=== PATIENT | male | born 1995 | race Caucasian/White ===

== ENCOUNTER 2020-08-06 11:02 | Emergency (ER) | payer OTHER, SELFPAY ==
[2020-08-06 11:07] VITALS: BP 132/74; PULSE 60; RESP 18; TEMP 36.6; O2SAT 98; BMI 20.6
[2020-08-06 11:29] LABS: MANUAL DIFF FLAG NO
[2020-08-06] MEDS: ondansetron HCL 4 MG/2 ML VIAL IVPUSH (11:30)
[2020-08-06] MEDS: 0.9 % Sodium Chloride 1,000 ML 999 ML IVCONT (11:31)
--- NOTE | 2020-08-06 11:33 | ED.NAVMDI ---
HPI - Nausea/Vomiting/Diarrhea General Chief complaint: Nausea/Vomiting/Diarrhea Stated complaint: n/v Time Seen by Provider: 08/06/20 11:17 Source: patient Mode of arrival: ambulatory Limitations: no limitations History of Present Illness HPI Narrative: 25 y/o healthy male presenting with acute onset of nausea and vomiting for the last 5 hours. Associated with diffuse abdominal cramping and feelings of subjective fever and chills. He has not had a fever at home. He vomited 6x this morning, non-bloody. No diarrhea. No sick contacts. No COVID exposure that he is aware of. MD elicited complaint: nausea and vomiting Onset (ago): hour(s) (5) Description of vomiting: food contents and bilious Associated nausea: Yes Associated abdominal pain: Yes Location of pain: diffuse Radiation: diffuse Pain consistency: intermittent Severity: mild Quality: cramping Exacerbating factors: vomiting Relieving factors: none Context: marijuana use Associated symptoms: fever/chills, loss of appetite and nausea/vomiting Related Data Previous Rx's Medication Instructions Recorded ondansetron HCl [Zofran] 4 mg PO Q8H PRN #20 tab 08/06/20 Allergies Allergy/AdvReac Type Severity Reaction Status Date / Time No Known Allergies Allergy Verified 08/06/20 11:06 [No Known Allergies*] Review of Systems Review of Systems: Constitutional: +subjective Fever, + Chills ENT/Mouth: No sore throat, No Rhinorrhea, No Swallowing Difficulty Eyes: No Eye Pain, No Swelling, No Redness Cardiovascular: No Chest Pain, No SOB, No Orthopnea, No Edema Respiratory: No Cough, No Sputum, No Wheezing, No dyspnea Gastrointestinal: + Nausea, + Vomiting, No Diarrhea, + abdominal Pain, No Hematochezia, No Melena Genitourinary: No Dysuria, No Urinary Frequency, No Hematuria Musculoskeletal: No joint pain, No Myalgias Skin: No Skin Lesions, No rash Neuro: No Weakness, No Numbness, No Dizziness, No Headache Psych: No Anxiety/Panic, No Depression Heme/Lymph: No Bruising, No Lymphadenopathy Endocrine: No Polyuria, No Polydipsia Gastrointestinal: Gastrointestinal: Reports nausea PMFSH Past Medical History Attestation statement: The following information was validated with the patient. Medical History Anxiety Asthma Depression Seizures Social History Social History Smoking Status: Never smoker Use of substances other than those prescribed or required for medical reasons: Yes Substance Use Type: Marijuana Substance Use Frequency: Weekly Last Used Substance: Days (ago) Advance Directives: No Advance Directives Information Provided: No Physical Exam Vital Signs: Vital Signs: Vital Signs Temp Pulse Resp BP Pulse Ox 08/06/20 12:38 51 125/79 100 08/06/20 11:35 100 08/06/20 11:07 97.8 F 60 18 132/74 98 Body Mass Index 20.6 Appearance: Alert. Oriented X3. Appears uncomfortable. Eyes: Pupils equal, round and reactive to light. ENT: Pharynx normal. Neck: Normal inspection. Neck supple. CVS: Normal heart rate and rhythm. Pulses normal. Respiratory: No respiratory distress. Breath sounds normal. Abdomen: Soft and nontender. mild diffuse tenderness, no rebound or guarding. +BS x4 Skin: Skin warm and dry. Normal skin color. Normal skin turgor. No rashes. Extremities: No lower extremity edema. Neuro: Oriented X 3. No motor deficit. No sensory deficit. Course Course Course Narrative: acute onset of N/V and cramping abd pain. No focal tenderness on exam. Ddx includes but not limited to gastroenteritis, food bourne illness, appendicitis, colitis, cholecystitis, viral syndrome. Basic labs pending with IVF and Zofran ordered for now. Reevaluation(s) Reevaluation #1: Nausea improved with zofran. He did vomit here x1 but is feeling better. He is requesting PO at this time. Reevaluation #2: Patient tolerating PO. He is stable for d/c. MDM - Nausea/Vomiting/Diarrhea Differential Diagnosis Differential diagnosis: Likely traveler's diarrhea, food poisoning, gastroenteritis, drug-induced nausea and vomiting and dehydration Lab Data Result diagrams: 08/06/20 11:25 08/06/20 12:08 Labs: Lab Results 08/06/20 08/06/20 08/06/20 Range/Units 11:25 11:25 12:08 WBC 7.3 (4.8-10.8) X10*3/uL RBC 4.81 (4.60-5.80) X10*6/uL Hgb 13.0 L (14.0-18.0) g/dl Hct 38.2 L (42-52) % MCV 79.4 L (80-98) fL MCH 27.0 (27.0-33.0) pg MCHC 34.0 (31.0-36.0) g/dl RDW 12.7 (11.0-16.0) % Plt Count 291 (160-400) X10*3/uL MPV 9.4 (9.4-12.4) fL Immature Gran % (Auto) 0.3 (0.0-0.4) % Neut % (Auto) 82.2 H (45-73) % Lymph % (Auto) 14.2 L (20-40) % [place] % (Auto) 3.0 (2-11) % Eos % (Auto) 0.0 (0-4) % Baso % (Auto) 0.3 (0-2) % Lymph # (Auto) 1.0 L (1.2-4.9) X10*3/uL [place] # (Auto) 0.2 (0.1-1.2) X10*3/uL Eos # (Auto) 0.0 (0.0-0.4) X10*3/uL Baso # (Auto) 0.0 (0.0-0.2) X10*3/uL Abs Immat Gran (auto) 0.02 (0.00-0.03) X10*3/uL Absolute Neuts (auto) 6.0 (2.0-8.3) X10*3/uL Absolute Nucleated RBC 0.000 (0.0-0.012) X10*3/uL Nucleated RBC % (auto) 0.0 (0.0-0.2) /100WBC Sodium Cancelled 138 Potassium Cancelled 3.5 Chloride Cancelled 106 Carbon Dioxide Cancelled 24 Anion Gap Cancelled 12 BUN Cancelled 17 H Creatinine Cancelled 0.68 Estim Creat Clear Calc Cancelled 172.7 Estimated GFR Cancelled > 60 Random Glucose Cancelled 127 H Calcium Cancelled 8.8 Total Bilirubin Cancelled 0.8 Direct Bilirubin Cancelled 0.4 AST Cancelled 14 ALT Cancelled 14 Alkaline Phosphatase Cancelled 67 Total Protein Cancelled 6.7 Albumin Cancelled 4.3 Discharge Plan Discharge Clinical Impression: Gastroenteritis Patient Disposition: Home, Self-Care Instructions: Gastroenteritis (ED) Additional Instructions: If you have persistent abdominal pain or increase in abdominal pain call 911 or come back to the ER for evaluation. If you are unable to tolerate food or drink by mouth come back to the ER for further evaluation. Follow up with your Primary Care Doctor this week. Prescriptions: New ondansetron HCl [Zofran] 4 mg tablet 4 mg PO Q8H PRN (Reason: nausea and vomiting) Qty: 20 RF: 0 Stand Alone Forms: Work/School Release
[2020-08-06 11:34] LABS: Basophils Percent Auto 0.3 % (0-2); Hematocrit 38.2 % (42-52); Imm Gran Abs Auto 0.02 X10*3/uL (0.00-0.03); Imm Gran Pct Auto 0.3 % (0.0-0.4); Lymphocytes Percent Auto 14.2 % (20-40); Mean Corpuscular Volume 79.4 fL (80-98); Mean Platelet Volume 9.4 fL (9.4-12.4); Monocytes Absolute Auto 0.2 X10*3/uL (0.1-1.2); Neutrophils Percent Auto 82.2 % (45-73); Platelet Count 291 X10*3/uL (160-400); Red Blood Count 4.81 X10*6/uL (4.60-5.80); Red Cell Distribution Width 12.7 % (11.0-16.0); White Blood Count 7.3 X10*3/uL (4.8-10.8)
[2020-08-06 11:35] VITALS: O2SAT 100
[2020-08-06 12:38] VITALS: BP 125/79; PULSE 51; O2SAT 100
--- NOTE | 2020-08-06 12:39 | PC.NURSE ---
pt resting in the stretcher with eyes shut, slightly pale in color, respirations even and unlabored. pt reports feeling a little better pain improved at 5/10 and also states that the nasues improved as well
[2020-08-06 12:40] LABS: Alanine Aminotransferase 14 U/L (0-40); Albumin Level 4.3 g/dL (3.5-5.0); Alkaline Phosphatase 67 U/L (39-117); Anion Gap 12 (12-20); Aspartate Amino Transferase 14 U/L (5-37); Bilirubin Direct 0.4 mg/dL (0.0-0.5); Bilirubin Total 0.8 mg/dL (0.0-1.0); Blood Urea Nitrogen 17 mg/dL (9-16); Calcium 8.8 mg/dL (8.4-10.2); Carbon Dioxide 24 mmol/L (22-29); Chloride 106 mmol/L (96-108); Creatinine Clr Calc Pharmacy 172.7; Estimated Glomerular Filt Rate > 60; Glucose Random 127 mg/dL (60-115); Potassium 3.5 mmol/l (3.3-5.1); Sodium 138 mmol/L (135-145); Total Protein 6.7 g/dL (6.5-8.0)
== END 2020-08-06 14:23 | disposition home or self-care (01) ==
PROVIDERS: Physician Assistant; Emergency Provider Emergency Medicine
DX: K52.9 Noninfective gastroenteritis and colitis, unspecified (principal)
CPT/HCPCS: 36415; 80048; 80076; 85025; 96361; 96374; 99284; J2405

== ENCOUNTER 2021-04-14 09:38 | Outpatient (REF) | payer OTHER, SELFPAY | END 2021-04-14 09:39 | disposition home or self-care (01) | LOC: HO.LAB 09:38 | PROVIDERS: Visit Provider Internal Medicine | DX: F11.99 Opioid use, unspecified with unspecified opioid-induced disorder (principal); Z79.899 Other long term (current) drug therapy | CPT/HCPCS: 80305 ==

== ENCOUNTER → 2021-04-18 09:57 | Outpatient (BNVA) | payer OTHER, SELFPAY | PROVIDERS: Visit Provider Internal Medicine | DX: F11.99 Opioid use, unspecified with unspecified opioid-induced disorder (principal) | CPT/HCPCS: 80305 ==

== ENCOUNTER 2021-04-25 10:14 | Outpatient (REF) | payer OTHER, SELFPAY ==
[2021-04-30 10:27] LABS: Buprenorphine Negative; Norbuprenorphine 8 ng/mL
== END 2021-04-25 10:15 | disposition home or self-care (01) ==
LOC: HO.LAB 10:14
PROVIDERS: Visit Provider Internal Medicine
DX: F11.99 Opioid use, unspecified with unspecified opioid-induced disorder (principal); Z79.899 Other long term (current) drug therapy
CPT/HCPCS: 80305; 80348; 80354; 80364; 80365

== ENCOUNTER 2021-05-02 09:06 | Outpatient (REF) | payer OTHER, SELFPAY | END 2021-05-02 09:07 | disposition home or self-care (01) | LOC: HO.LAB 09:06 | PROVIDERS: Visit Provider Internal Medicine | DX: F11.99 Opioid use, unspecified with unspecified opioid-induced disorder (principal) | CPT/HCPCS: 80305; 80354; 80364; 80365 ==

== ENCOUNTER 2021-05-13 10:11 | Outpatient (REF) | payer OTHER, SELFPAY ==
[2021-05-22 10:39] LABS: Codeine, Ur NEGATIVE; Hydrocodone, Ur NEGATIVE; Morphine, Ur NEGATIVE; Oxycodone, Ur NEGATIVE
[2021-05-22 10:40] LABS: Hydromorphone, Ur NEGATIVE; Norhydrocodone, Ur NEGATIVE
== END 2021-05-13 10:12 | disposition home or self-care (01) ==
LOC: HO.LNP 10:11
PROVIDERS: Visit Provider Nurse Practitioner Psychiatric/Mental Health
DX: F11.99 Opioid use, unspecified with unspecified opioid-induced disorder (principal); Z79.899 Other long term (current) drug therapy
CPT/HCPCS: 80305; 80354; 80364; 80365

== ENCOUNTER → 2021-05-20 10:09 | Outpatient (BNVA) | payer OTHER, SELFPAY | PROVIDERS: Visit Provider Internal Medicine | DX: F11.99 Opioid use, unspecified with unspecified opioid-induced disorder (principal) | CPT/HCPCS: 80305; 99211 ==

== ENCOUNTER → 2024-09-04 13:41 | Outpatient (BNVA) | payer OTHER, SELFPAY | PROVIDERS: Visit Provider Nurse Practitioner Psychiatric/Mental Health ==